=== PATIENT | female | born 2000 | race Caucasian/White ===

== ENCOUNTER → 2024-12-31 10:38 | Outpatient (CLI) | payer OTHER, SELFPAY ==
--- NOTE | 2024-12-31 10:41 | DI.RAD.S_ITS ---
PROCEDURE: XR FOOT LT MIN 3V INDICATIONS: glass in heel, distal lateral heel TECHNIQUE: Three views of the left foot COMPARISON: None. FINDINGS: Bones: No fractures or dislocations. 0.4 cm round metallic density foreign body noted within the lateral subcutaneous soft tissues of the posterior heel. No suspicious bony lesions. Soft tissues: No tibiotalar joint effusion. Achilles tendon appears normal. IMPRESSION: No evidence of acute osseous abnormality. Subcutaneous radiodense foreign body noted. Dictated by: José Rossi M.D. on 12/31/2024 at 15:18 Approved by: José Rossi M.D. on 12/31/2024 at 15:20
== END ==
PROVIDERS: Referring Provider Physician Assistant; Visit Provider Physician Assistant
DX: S90.852A Superficial foreign body, left foot, initial encounter (principal); S99.929A Unspecified injury of unspecified foot, initial encounter; W45.8XXA Other foreign body or object entering through skin, initial encounter
CPT/HCPCS: 73630